=== PATIENT | female | born 2000 | race Caucasian/White ===

== ENCOUNTER 2020-02-02 18:07 | Observation (INO) ==
[2020-02-02] MEDS ORDERED: Lidocaine/EPI 1:200k 1% PF 10 ML VIAL INFILT ONE (18:14)
[2020-02-02 19:00] LABS: Bilirubin,Urine Small (Negative); Blood,Urine Negative (Negative); Clarity,Urine Clear (Clear); Color,Urine Dark Yellow (Yellow); Glucose,Urine (UA) Normal (Normal); Ketones,Urine Trace mg/dL (Negative); Leukocyte Esterase,Urine Small (Negative); Nitrite,Urine Negative (Negative); Protein,Urine Trace mg/dL (Neg-Trace); Specific Gravity,Urine > 1.030 (1.010-1.025); Urobilinogen,Urine Normal (Normal)
[2020-02-02 19:03] LABS: Bacteria,Urine Few per hpf (None-Few); Hyaline Casts,Urine Few per lpf (None-Few); RBC,Urine 0-3 per hpf (0-3); Squamous Epithelial Cell,Urine Many per lpf (None-Few)
[2020-02-02 19:13] LABS: Amphetamine Screen,Urine Negative ng/mL (Cutoff=1000); Barbiturate Screen,Urine Negative ng/mL (Cutoff=200); Benzodiazepines Screen,Urine Positive ng/mL (Cutoff=200); Cannabinoid Screen,Urine Positive ng/mL (Cutoff = 50); Cocaine Screen,Urine Negative ng/mL (Cutoff= 300); Opiate Screen,Urine Negative ng/mL (Cutoff=300); Phencyclidine Screen,Urine Negative ng/mL (Cutoff=25)
[2020-02-02 19:14] LABS: Basophils % 0.3 %; Eosinophils # 0.1 K/mcL (0.0-0.6); Eosinophils % 1.3 %; Hematocrit 40.3 % (35.3-44.9); Hemoglobin 13.8 g/dL (11.5-15.4); Immature Granulocytes % 0.2 % (0-4); Lymphocytes # 2.5 K/mcL (0.6-4.6); Lymphocytes % 28.8 %; Mean Corpuscular HGB Conc 34.2 g/dL (31.6-35.5); Mean Corpuscular Hemoglobin 30.9 pg (28.0-33.3); Mean Corpuscular Volume 90.4 fL (83.0-100.0); Mean Platelet Volume 10.8 fL (9.4-12.4); Monocytes # 0.5 K/mcL (0.0-1.3); Monocytes % 5.3 %; Neutrophils # 5.6 K/mcL (1.6-8.9); Platelet Count 293 K/mcL (140-400); Red Blood Count 4.46 M/mcL (3.82-4.97); Red Cell Distribution Width 11.3 % (11.5-14.5); Segmented Neutrophils % 64.1 %; White Blood Count 8.7 K/mcL (4.3-11.1)
[2020-02-02 19:17] LABS: Mucus,Urine Moderate per lpf (Few)
[2020-02-02] MEDS ORDERED: Tdap (Boostrix) Vaccine 0.5 ML SYRINGE IM ONE (19:22)
[2020-02-02] MEDS ORDERED: *HR* LORazepam 2 MG/ML VIAL IM ONE ×3 (19:27→21:29)
[2020-02-02 19:29] LABS: Acetaminophen < 10 mcg/mL (10-20); BUN/Creatinine Ratio 15 (6-26); Blood Urea Nitrogen 13 mg/dL (6-20); Calcium 9.6 mg/dL (8.6-10.3); Carbon Dioxide 22 mEq/L (23-29); Chloride 107 mEq/L (98-107); Ethanol < 10 mg/dL (Less than 10); Glucose 94 mg/dL (70-105); Osmolality,Calculated 286 (280-300); Potassium 3.6 mEq/L (3.5-5.1); Salicylate < 2.5 mg/dL (15.0-30.0); Sodium 138 mEq/L (136-145); eGFR For African Americans > 60 (> 60); eGFR For Non-African Americans > 60 (> 60)
[2020-02-02] MEDS ORDERED: *HR* LORazepam 2 MG/ML VIAL ONE (19:29)
[2020-02-02] MEDS ORDERED: Haloperidol Lactate 5 MG/ML VIAL IM ONE ×2 (19:30→21:29)
[2020-02-02] MEDS ORDERED: Haloperidol Lactate 5 MG/ML VIAL IM PRN (21:52)
[2020-02-02] MEDS ORDERED: MOM Conc 10 ML UD.LIQ PO PRN (21:52)
[2020-02-02] MEDS ORDERED: *HR* LORazepam 2 MG/ML VIAL IM PRN (21:52)
[2020-02-02] MEDS ORDERED: Ibuprofen 400 MG TABLET PO PRN (21:52)
[2020-02-02] MEDS ORDERED: Acetaminophen 325 MG TABLET PO PRN (21:52)
[2020-02-02] MEDS ORDERED: hydrOXYzine pamoate 25 MG CAPSULE PO PRN (21:52)
[2020-02-02] MEDS ORDERED: *HR* LORazepam 1 MG TABLET PO PRN (21:52)
[2020-02-02] MEDS ORDERED: haloperidoL 5 MG TABLET PO PRN (22:27)
[2020-02-02] MEDS ORDERED: QUEtiapine Fumarate 25 MG TABLET PO SCH (23:30)
[2020-02-03] MEDS ORDERED: Mag Hydrox/Al Hydrox/Simeth 30 ML UDC PO PRN (00:03)
[2020-02-03] MEDS ORDERED: QUEtiapine Fumarate 25 MG TABLET PO PRN (00:08)
[2020-02-03] MEDS ORDERED: Nicotine 21 MG PATCH.TD24 TD SCH (09:00)
[2020-02-03 10:51] VITALS: BP 97/67
== END 2020-02-03 12:45 | disposition home or self-care (01) ==
LOC: 1ANU 18:07 → EMEROOARM 18:07 → 1ANU 22:10
PROVIDERS: ADMIT Psychiatry & Neurology Psychiatry; ATTEND Psychiatry & Neurology Psychiatry